=== PATIENT | male | born 1935 | race Caucasian/White ===

== ENCOUNTER → 2017-12-15 13:56 | Outpatient (CLI) | payer MEDICARE, SELFPAY ==
--- NOTE | 2017-12-15 14:01 | DI.RAD.S_ITS ---
PROCEDURE: XR CERVICAL SPINE 4V OR 5V INDICATIONS: PAIN TECHNIQUE: 5 views of the cervical spine acquired. COMPARISON: None. FINDINGS: Bones: No fractures or dislocations to the T1 level. No suspicious lytic or blastic lesions are seen. Degenerative changes are seen throughout, with moderate disc space narrowing at each cervical level. Endplate irregularity and sclerosis are seen, which are most prominent at C5-C6. Bridging anterior osteophytes are seen at C3-C4 and C5-C6. On oblique images, there is moderate neural foraminal narrowing on the left at the C3-C4 level, moderate to severe neural foraminal narrowing at C4-C5 and C5-C6 and moderate neural foraminal narrowing at C6-C7. On the right, there is moderate to severe neural foraminal narrowing seen at C4-C5, C5-C6, and C6-C7. Sternotomy wires and mediastinal clips are seen. Soft tissues: No prevertebral soft tissue swelling. Advanced calcification can be seen of the carotid arteries. The visualized lung demonstrates an unremarkable appearance. IMPRESSION: Prominent cervical spine degenerative changes. Advanced calcification of the carotids. Dictated by: Lonnie Tomas M.D. on 12/16/2017 at 13:42 Approved by: Lonnie Tomas M.D. on 12/16/2017 at 13:45
== END ==
PROVIDERS: PCP Internal Medicine; Visit Provider Physical Medicine & Rehabilitation
DX: M54.2 Cervicalgia (principal); M48.02 Spinal stenosis, cervical region; I65.29 Occlusion and stenosis of unspecified carotid artery
CPT/HCPCS: 64405; 64450; 72050; 99214; J1100

== ENCOUNTER → 2018-01-25 14:01 | Outpatient (CLI) | payer MEDICARE, SELFPAY ==
--- NOTE | 2018-01-25 14:11 | DI.CT.S_ITS ---
PROCEDURE: CT CERVICAL SPINE WO CON INDICATIONS: fall, lower neck pains TECHNIQUE: Noncontrast 3 mm thick sections acquired from the skull base to the T4 level. Sagittal and coronal reformats were then constructed. For radiation dose reduction, the following was used: automated exposure control, adjustment of mA and/or kV according to patient size. COMPARISON: [facility], CR, XR CERVICAL SPINE 4V OR 5V, 12/15/2017, 14:07. FINDINGS: Image quality: Excellent. Bones: No fractures or dislocations. There is severe degenerative disc disease at C5-C6 and C6-C7, and mild to moderate degenerative disc disease at other levels. Bilateral facet arthropathy in cervical spine, most pronounced C4-C5 on the left and C2-C3 and C3-C4 on the right. Visualized superior ribs are intact. Soft tissues: Prevertebral soft tissues are normal in thickness. No paravertebral hematomas. No apical pneumothoraces. Sternotomy. There is a cardiac pacemaker. IMPRESSION: 1. No fractures. 2. Degenerative changes in cervical spine as described. Dictated by: Ning Meneses M.D. on 01/25/2018 at 15:12 Approved by: Ning Meneses M.D. on 01/25/2018 at 15:40
--- NOTE | 2018-01-25 14:11 | DI.CT.S_ITS ---
PROCEDURE: CT HEAD/BRAIN WO CON INDICATIONS: severe head pain after fall TECHNIQUE: Noncontrast 4.5 mm thick angled axial sections acquired from the foramen magnum to the vertex, with coronal and sagittal reformats. For radiation dose reduction, the following was used: automated exposure control, adjustment of mA and/or kV according to patient size. COMPARISON: [facility], MR, BRAIN W&W/O CONTRAST, 05/30/2009, 7:51. [facility], CT, BRAIN W/O CONTRAST, 03/23/2013, 15:48. FINDINGS: Image quality: Excellent. CSF spaces: Basal cisterns are patent. No extra-axial fluid collections. The ventricles are symmetric in size and shape. Brain: No intracranial bleeds or masses. There is cerebral volume loss for age, with resultant ventricular and sulcal prominence. There are periventricular and deep white matter chronic small vessel ischemic changes. There is intracranial internal carotid artery atherosclerosis. Skull and face: Calvarium and visualized facial bones appear intact, without suspicious lesions. Sinuses: Visualized sinuses and mastoids are clear. IMPRESSION: 1. No acute intracranial abnormalities. 2. Cerebral volume loss and chronic microvascular ischemic changes. Dictated by: Ning Meneses M.D. on 01/25/2018 at 15:06 Approved by: Nnig Meneses M.D. on 01/25/2018 at 15:12
== END ==
PROVIDERS: PCP Internal Medicine; Visit Provider Physical Medicine & Rehabilitation
DX: M50.122 Cervical disc disorder at C5-C6 level with radiculopathy (principal); R51 Headache; M47.22 Other spondylosis with radiculopathy, cervical region; M54.81 Occipital neuralgia; Z95.0 Presence of cardiac pacemaker
CPT/HCPCS: 70450; 72125

== ENCOUNTER 2018-01-25 14:26 | Emergency (ER) | payer MEDICARE, SELFPAY ==
[2018-01-25 14:42] VITALS: BP 111/60; PULSE 75; RESP 18; TEMP 36.1; O2SAT 100
--- NOTE | 2018-01-25 15:10 | PC.NURSE ---
apparently tripped on carpet in hallway, no loc, large skin tear to l forearm, skin tear to right upper face, punture to right brow, skin tear to l knuckes, states r scapular and r rib area pain. alert no loc. in room
--- NOTE | 2018-01-25 16:15 | DI.RAD.S_ITS ---
PROCEDURE: XR CHEST 2V INDICATIONS: glf TECHNIQUE: 2 views of the chest were acquired. COMPARISON: [facility], , XR CHEST 1 VIEW, 12/29/2017, 1:38. FINDINGS: Surgical changes and devices: Eliane status post median sternotomy. Cardiac pacer is unchanged. Lungs and pleura: No pleural effusions or pneumothorax. Lungs are clear. Mediastinum: Mediastinal contours are normal. Heart size is normal. Bones and chest wall: No suspicious bony abnormalities. Soft tissues appear unremarkable. IMPRESSION: No acute cardiopulmonary findings. Dictated by: Jessica Nolasco M.D. on 01/25/2018 at 17:30 Approved by: Jessica Nolasco M.D. on 01/25/2018 at 17:31
--- NOTE | 2018-01-25 16:15 | DI.CT.S_ITS ---
PROCEDURE: CT HEAD/BRAIN WO CON INDICATIONS: Ground level fall TECHNIQUE: Noncontrast 4.5 mm thick angled axial sections acquired from the foramen magnum to the vertex, with coronal and sagittal reformats. For radiation dose reduction, the following was used: automated exposure control, adjustment of mA and/or kV according to patient size. COMPARISON: [facility], CT, BRAIN W/O CONTRAST, 03/23/2013, 15:48. [facility], CT, CT HEAD/BRAIN WO CON, 01/25/2018, 14:00. FINDINGS: Image quality: Excellent. CSF spaces: Basal cisterns are patent. No extra-axial fluid collections. The ventricles are symmetric in size and shape. Brain: No intracranial bleeds. There is cerebral volume loss for age, with resultant ventricular and sulcal prominence. There are periventricular and deep white matter chronic small vessel ischemic changes. There is intracranial internal carotid artery atherosclerosis. There is a small focus of hyperdensity suggestive of calcification appearing to be extra dural in the left frontal lobe. This is been unchanged since 2012. Skull and face: Calvarium and visualized facial bones appear intact, without suspicious lesions. Sinuses: Visualized sinuses and mastoids are clear. IMPRESSION: 1. No acute intracranial process. 2. Moderate atrophy and chronic microvascular ischemic changes. 3. Small apparent extradural calcification as above, stable compared to 2013. This could represent a small meningioma. As clinically indicated, MRI brain with and without contrast may be obtained for further evaluation. Dictated by: Aleena Holm M.D. on 01/25/2018 at 16:57 Approved by: Aleena Holm M.D. on 01/25/2018 at 17:00
[2018-01-25] MEDS: DIPHTH,PERTUSS(ACELL),TET VAC 0.5 ML SYRINGE IM (16:34)
--- NOTE | 2018-01-25 16:54 | PC.NURSE ---
telfa and sharon dressing to right forearm, and l hand. r side of face cleansed hib/ns/
[2018-01-25 17:03] VITALS: BP 128/52; PULSE 68; RESP 16; TEMP 36.8; O2SAT 100
--- NOTE | 2018-01-25 17:04 | ED_ITS ---
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 He was at this facility for a CT of his head and neck after a previous ground level fall. He states he tripped on a carpet and fell in the lobby of the emergency department. He denies any loss of consciousness, nausea, vomiting, dizziness or lightheadedness. He states he has a skin tear or injury on his right forearm after catching a wheelchair. He also states he has a laceration on his face. He denies any hip pain leg pain and states he was able to ambulate after. However he does complain of pain on the back of his right side of his ribs. His is at his bedside. Related Data Home Medications Medication Instructions Recorded Confirmed aspirin 81 mg tablet,delayed 81 mg PO DAILY 12/15/17 01/25/18 release atorvastatin 20 mg tablet 20 mg PO DAILY 12/15/17 01/25/18 hydroxychloroquine 200 mg tablet 200 mg PO BID tab 12/15/17 01/25/18 levothyroxine 75 mcg capsule 75 mcg PO DAILY 12/15/17 01/25/18 pilocarpine 5 mg tablet 5 mg PO TID 12/15/17 01/25/18 polyethylene glycol 3350 17 1 packet PO DAILY PRN gram 12/15/17 01/25/18 gram/dose oral powder prednisolone 5 mg tablet 5 mg PO DAILY 12/15/17 01/25/18 triamcinolone acetonide 0.1 % 1 applic TOP DIRECTED 12/15/17 01/25/18 topical cream acetaminophen [Tylenol Extra 1,000 mg PO PRN PRN 01/25/18 01/25/18 Strength] cetirizine [Aller-Neva] 20 mg PO DAILY 01/25/18 01/25/18 furosemide 20 mg PO DAILY 01/25/18 01/25/18 lisinopril 2.5 mg PO DAILY 01/25/18 01/25/18 metoprolol succinate 50 mg PO DAILY 01/25/18 01/25/18 pantoprazole 40 mg PO DAILY 01/25/18 01/25/18 potassium chloride 10 meq PO DAILY 01/25/18 01/25/18 Allergies Allergy/AdvReac Type Severity Reaction Status Date / Time No Known Drug Allergies Allergy Verified 01/14/18 14:26 Review of Systems <JERRICA Best- - Last Filed: 01/25/18 23:43> Review of Systems GENERAL: Denies chills, fatigue, malaise, fever, sweats. HEENT: Denies sinus pain, ear pain, sore throat, difficulty swallowing, dizziness. RESPIRATORY: See HPI CARDIOVASCULAR: Denies chest pain, palpitations, orthopnea, edema, GASTROINTESTINAL: Denies nausea, vomiting, abdominal pain, diarrhea, constipation, melena. : Denies dysuria, frequency, incontinence, hematuria, urinary retention. MUSCULOSKELETAL: denies weakness, joint pain, or bony pain SKIN: see HPI NEUROLOGIC: see HPI PSYCHIATRIC: No concerning psychosocial issues. 12 point review of systems is negative except for those stated above Exam <POOL BestP- - Last Filed: 01/25/18 23:43> Narrative Exam Narrative: GENERAL: This is a well-nourished, well-developed patient, No acute distress HEAD: Atraumatic. Normocephalic. No temporal or scalp tenderness. EYES: Pupils equal round and reactive. Extraocular motions intact. No scleral icterus. No injection or drainage. ENT: Nose without bleeding, purulent drainage or septal hematoma. Throat without erythema, tonsillar hypertrophy or exudate. Uvula midline. Airway patent. NECK: Trachea midline. No JVD or lymphadenopathy. Supple, nontender, no meningeal signs. CARDIOVASCULAR: Regular rate and rhythm without murmurs, gallops, or rubs. RESPIRATORY: Clear to auscultation. Breath sounds equal bilaterally. No wheezes , rales, or rhonchi. no cough on exam. No accessory muscle use. Pain on palpation of right lower posterior ribs. No pain on anterior posterior chest wall compression or lateral chest wall compression. GASTROINTESTINAL: Abdomen soft, non-tender, nondistended. No hepato-splenomegaly , or palpable masses. No guarding. EXTREMITIES: Patient has full range of motion right forearm and elbow. Denies need for x-ray. Positive radial pulse right hand. BACK: Nontender without deformity or crepitance. No flank tenderness. No pain on C-spine or spinal palpation. NEURO: AOx3. No slurred speech. Strength equal upper and lower extremities bilaterally. Cranial nerves grossly intact. SKIN: Large skin tear right forearm. 3 cm laceration just superior to right eyebrow. Through dermis, no muscle or tendon involvement. Laceration is linear. Initial Vital Signs Initial Vital Signs: Vital Signs Temperature 97.0 F L 01/25/18 14:42 Pulse Rate 75 01/25/18 14:42 Respiratory Rate 18 01/25/18 14:42 Blood Pressure 111/60 01/25/18 14:42 Pulse Oximetry 100 01/25/18 14:42 <Eldon Sinclair DO - Last Filed: 01/28/18 18:19> Initial Vital Signs Initial Vital Signs: Vital Signs Temperature 97.0 F L 01/25/18 14:42 Pulse Rate 75 01/25/18 14:42 Respiratory Rate 18 01/25/18 14:42 Blood Pressure 111/60 01/25/18 14:42 Pulse Oximetry 100 01/25/18 14:42 Procedures <SAMANTHA Best - Last Filed: 01/25/18 23:43> Laceration Repair Laceration 1: Site: face Side (If applicable): right Size (cm): 3 Description: linear Depth: simple, single layer Pre-repair: wound explored ( cleansed with sterile water, normal saline and Hibiclens.), irrigated extensively and deep structures intact Skin layer closed with: other ( Dermabond) Course <SAMANTHA Best - Last Filed: 01/25/18 23:43> Orders Ordered: Discontinued Medications Acetaminophen (Tylenol) 650 mg PO NOW ONE Stop: 01/25/18 17:53 Last Admin: 01/25/18 17:55 Dose: 650 mg Vital Signs - 8 hr 01/25/18 17:03 Temperature 98.2 F Pulse Rate 68 Respiratory Rate 16 Blood Pressure [Right Arm] 128/52 L Pulse Oximetry 100 <DO Kota Holland Last Filed: 01/28/18 18:19> Orders Ordered: Discontinued Medications Acetaminophen (Tylenol) 650 mg PO NOW ONE Stop: 01/25/18 17:53 Last Admin: 01/25/18 17:55 Dose: 650 mg Vital Signs - 8 hr 01/25/18 17:03 Temperature 98.2 F Pulse Rate 68 Respiratory Rate 16 Blood Pressure [Right Arm] 128/52 L Pulse Oximetry 100 MDM - Fall <SAMANTHA Best - Last Filed: 01/25/18 23:43> Imaging Data CT scan - head: Radiologist's impression: [address] [address] [address] Scan Report Signed Patient: Marino Ruelas BMR#: [id number] : 6Acct:[id number] Age/Sex: 82 / MDate of Service: 01/25/18 Loc: ED Accession Number: [id number] Procedure: CT head/brain wo con Ordering Provider: Humaira Wong PROCEDURE: CT HEAD/BRAIN WO CON INDICATIONS: Ground level fall TECHNIQUE: Noncontrast 4.5 mm thick angled axial sections acquired from the foramen magnum to the vertex, with coronal and sagittal reformats. For radiation dose reduction, the following was used: automated exposure control, adjustment of mA and/or kV according to patient size. COMPARISON: [facility], CT, BRAIN W/O CONTRAST, 03/23/2013, 15:48. [facility], CT, CT HEAD/BRAIN WO CON, 01/25/2018, 14:00. FINDINGS: Image quality: Excellent. CSF spaces: Basal cisterns are patent. No extra-axial fluid collections. The ventricles are symmetric in size and shape. Brain: No intracranial bleeds. There is cerebral volume loss for age, with resultant ventricular and sulcal prominence. There are periventricular and deep white matter chronic small vessel ischemic changes. There is intracranial internal carotid artery atherosclerosis. There is a small focus of hyperdensity suggestive of calcification appearing to be extra dural in the left frontal lobe. This is been unchanged since 2012. Skull and face: Calvarium and visualized facial bones appear intact, without suspicious lesions. Sinuses: Visualized sinuses and mastoids are clear. IMPRESSION: 1. No acute intracranial process. 2. Moderate atrophy and chronic microvascular ischemic changes. 3. Small apparent extradural calcification as above, stable compared to 2013. This could represent a small meningioma. As clinically indicated, MRI brain with and without contrast may be obtained for further evaluation. Dictated by: Aleena Holm M.D. on 01/25/2018 at 16:57 Approved by: Aleena Holm M.D. on 01/25/2018 at 17:00 Chest x-ray: Radiologist's impression: [address] [address] XRay Report Signed Patient: Marino Ruelas BMR#: [id number] : 6Acct:[id number] Age/Sex: 82 / MDate of Service: 01/25/18 Loc: ED Accession Number: [id number] Procedure: XR chest 2V Ordering Provider: Humaira Wong PROCEDURE: XR CHEST 2V INDICATIONS: glf TECHNIQUE: 2 views of the chest were acquired. COMPARISON: [facility], , XR CHEST 1 VIEW, 12/29/2017, 1:38. FINDINGS: Surgical changes and devices: Eliane status post median sternotomy. Cardiac pacer is unchanged. Lungs and pleura: No pleural effusions or pneumothorax. Lungs are clear. Mediastinum: Mediastinal contours are normal. Heart size is normal. Bones and chest wall: No suspicious bony abnormalities. Soft tissues appear unremarkable. IMPRESSION: No acute cardiopulmonary findings. Dictated by: Jessica Nolasco M.D. on 01/25/2018 at 17:30 Approved by: Jessica Nolasco M.D. on 01/25/2018 at 17:31 [facility] Narrative Medical decision making narrative: Patient is an 82-year-old male who presents after ground level fall. He had a negative chest x-ray, a negative head CT. He passed an ambulation trial. his laceration was closed with Dermabond without incident. I discussed at length monitoring for signs and symptoms of infection including redness, pus, fever. He had no questions or concerns upon discharge and states he will follow up with his primary care provider. Discussed return precautions. Discharge Plan Departure Patient Disposition: Home Clinical Impression: Skin tear, Laceration, Abrasion, Fall from ground level Discharge Date/Time: 01/25/18 18:05 Interventions: ED Discharge Assessment Last Done: 01/25/18 18:04 Instructions: DI for Laceration Repair Steri-Strips, DI for Laceration Repair With Dermabond, How to Prevent Falls, DI for Abrasion Activity Restrictions/Additional Instructions: Please monitor your abrasions and skin tears for signs and symptoms of infection this includes redness, pus and fever. Please be evaluated if any of those occur. Your head CT and chest x-ray came back normal today. Please follow-up with her primary care provider come back to the emergency department if needed for concerns of heart attack, stroke or confusion. Prescriptions: No Action cetirizine [Aller-Neva] 10 mg Tablet 20 mg PO DAILY RF: 0 potassium chloride 10 mEq Capsule, Extended Release 10 meq PO DAILY RF: 0 metoprolol succinate 50 mg Tablet Extended Release 24 Hr 50 mg PO DAILY RF: 0 acetaminophen [Tylenol Extra Strength] 500 mg Tablet 1,000 mg PO PRN PRN (Reason: pain) RF: 0 pantoprazole 40 mg Tablet,Delayed Release (Dr/Ec) 40 mg PO DAILY RF: 0 lisinopril 5 mg Tablet 2.5 mg PO DAILY RF: 0 furosemide 20 mg Tablet 20 mg PO DAILY RF: 0 pilocarpine HCl 5 mg tablet 5 mg PO TID RF: 0 atorvastatin 20 mg tablet 20 mg PO DAILY RF: 0 aspirin 81 mg tablet,delayed release (DR/EC) 81 mg PO DAILY RF: 0 triamcinolone acetonide 0.1 % cream 1 applic TOP DIRECTED RF: 0 hydroxychloroquine 200 mg tablet 200 mg PO BID RF: 0 polyethylene glycol 3350 17 gram/dose powder 1 packet PO DAILY PRN (Reason: Constipation) RF: 0 prednisolone 5 mg tablet 5 mg PO DAILY RF: 0 levothyroxine 75 mcg capsule 75 mcg PO DAILY RF: 0 Referrals: Susan Whitney [Primary Care Provider] - <Eldon Sinclair DO - Last Filed: 01/28/18 18:19> [facility] Att[facility]: I was available for consultation during this patient's emergency department encounter
[2018-01-25] MEDS: ACETAMINOPHEN 325 MG TABLET 650 MG PO (17:55)
== END 2018-01-25 18:05 | disposition home or self-care (01) ==
PROVIDERS: Emergency Provider Nurse Practitioner Family; PCP Internal Medicine
DX: S01.81XA Laceration without foreign body of other part of head, initial encounter (principal); S50.811A Abrasion of right forearm, initial encounter; W01.0XXA Fall on same level from slipping, tripping and stumbling without subsequent striking against object, initial encounter; M50.122 Cervical disc disorder at C5-C6 level with radiculopathy; R51 Headache; M47.22 Other spondylosis with radiculopathy, cervical region; M54.81 Occipital neuralgia; Z95.0 Presence of cardiac pacemaker
CPT/HCPCS: 70450; 71046; 72125; 90471; 90715; 99282; 99284

== ENCOUNTER 2018-04-06 12:32 | Outpatient (CLI) | payer MEDICARE, SELFPAY ==
[2018-04-06] VITALS (8 sets, daily range): BP systolic 99–152; BP diastolic 46–58; PULSE 69–75; RESP 16–17; TEMP 36.1; O2SAT 95–100
--- NOTE | 2018-04-06 12:33 | DI.RAD.S_ITS ---
PROCEDURE: PAIN L/S FACET INJ/BLK 1ST JC COMPARISON: None. INDICATIONS: SPONDYLOSIS FINDINGS: 6 intral-operative fluoroscopy images were obtained demonstrating injection of the right and left L4-L5, L5-S1 facet joints. IMPRESSION: Fluoroscopy for pain management. Dictated by: Ning Meneses M.D. on 04/06/2018 at 15:53 Approved by: Ning Meneses M.D. on 04/06/2018 at 15:54
[2018-04-06] MEDS: MIDAZOLAM 5 MG/5 ML VIAL IV (13:22)
[2018-04-06] MEDS: LIDOCAINE 1% 20 ML INJ 10 ML INJ (13:29)
[2018-04-06] MEDS: BETAMETHASONE 30 MG/5 ML MDV 12 MG INJ (13:30)
[2018-04-06] MEDS: IOPAMIDOL 15 ML VIAL 3 ML INJ (13:30)
--- NOTE | 2018-04-06 13:32 | PC.NURSE ---
ASSISTING PT OFF TABLE AND TRANSPORTING TO POST PROC AREA IN STABLE CONDITION
--- NOTE | 2018-04-06 13:36 | P.PCN_ITS ---
Procedures Date/Time Date of procedure: 04/06/18 Time of procedure: 13:35 General Procedure description: PREOP DIAGNOSIS 1. FACET ARTHROPATHY 2. AXIAL LBP 3. MULTILEVEL DDD POST OP DIAGNOSIS 1. FACET ARTHROPATHY 2. AXIAL LBP 3. MULTILEVEL DDD PROCEDURES 1. FLUORSCOPICALLY GUIDED CONTRAST CONTROLLED FACET JOINT INJECTIONS BILATERAL L4/5, L5/S1 PHYSICIAN: Franklyn Maloney, DO INDICATIONS Marino is referred by Dr. Whitney for treatment of Axial LBP FINDINGS Multilevel Facet Arthropathy with Clinically significant axial LBP DESCRIPTION OF PROCEDURE Fluoroscopically guided, contrast-controlled bilateral L4/5, L5/S1 facet joint injections. Following denial of allergy and review of potential side effects and complications, including, but not necessarily limited to, infection, allergic reaction, local tissue breakdown, stroke, temporary or permanent nerve injury, paralysis, and possible , the patient indicated that the patient understood and agreed to proceed. An informed consent document was signed by the patient, witnessed by a nurse, and placed in the patient's chart. Additionally, other treatment options including medications, modalities, and physical therapy were reviewed with the patient. After review of previous anaesthesic history and IV conscious sedation the patient was deemed safe to proceed with todays procedure with IV conscious sedation as ASA class II designation. Safety time-out was performed to confirm patient ID, procedure to be performed and site of procedure. IV sedation was accomplished with a combination of 3mg was administered by the RN after DO order , titrated to patient comfort during the course of the procedure while the patient remained responsive to all verbal commands In the prone position, following sterile prep and drape of the lumbar region, the posterior aspect of the L4/5, L5/S1 facet joints were identified fluoroscopically. The skin was anesthetized via a 25-gauge 1.5-inch needle with 1% lidocaine solution into the corresponding facet joints. At this point, a 22-gauge 3.5-inch spinal needle was atraumatically introduced and advanced under fluoroscopic guidance into the corresponding facet joints. Following negative aspiration, injections of approximately 0.2-cc of Isovue 200 confirmed interarticular placement without vascular uptake. The identical procedure was then performed at the L4/5, L5/S1 facet joints on the left. Radiological data, including multiple fluoroscopic views of the lumbosacral spine, reveal a spinal needle at the L4/5, L5/S1 facet joints bilaterally. Subsequent views show flow of contrast material both superiorly and inferiorly within the joint space without vascular or intrathecal uptake. At this point, a total of 0.5 cc including a mixture of 0.25cc Marcaine and 0.25cc betamethasone was injected without complication into each of the corresponding facet joints. The patient tolerated the procedure well without signs or symptoms of complications prior to transfer to the recovery area continued monitoring without incident. The patient was then transferred to the recovery area where they were observed for an appropriate period of time after the injection. The patient reported a VAS score of 7 prior to the procedure and a post- procedure VAS of 0. Total Fluoroscopy Time: 20.3 seconds Total Conscious Sedation Time: 24min POST OP INSTRUCTIONS The patient was provided a Pain Log to continue to record their response to the target-specific procedure prior to follow-up visit with their referring physician. Additionally, specific post-injection care instructions and a contact number to our office were provided if concerns arise regarding possible complications associated with the procedure are suspected. Franklyn Maloney, Complications: none
--- NOTE | 2018-04-06 14:17 | PC.NURSE ---
Received pt via W/C from procedure and resumed monitoring from Pricila DAVALOS. pt awake and stable.
== END 2018-04-06 14:05 ==
LOC: RAD 12:33
PROVIDERS: PCP Internal Medicine; Visit Provider Physical Medicine & Rehabilitation
DX: M47.816 Spondylosis without myelopathy or radiculopathy, lumbar region (principal); M47.817 Spondylosis without myelopathy or radiculopathy, lumbosacral region; M54.5 Low back pain; M51.36 Other intervertebral disc degeneration, lumbar region; M51.37 Other intervertebral disc degeneration, lumbosacral region
CPT/HCPCS: 64493; 64494; 99152; J0702; J2250